=== PATIENT | female | born 1990 | race Caucasian/White ===

== ENCOUNTER → 2016-07-01 | Outpatient (CLI) | payer OTHER ==
[~2016-07-01] MED LIST: CEPH500C PO; DEPLIN PO; FLUO40CA8 PO; HYDR-5688 PO; ONDA4TAB10 SL
== END | disposition home or self-care (01) ==
LOC: C.LABPVFM 10:28
PROVIDERS: ATTEND Nurse Practitioner
DX: F32.9 Major depressive disorder, single episode, unspecified (principal)

== ENCOUNTER → 2016-09-29 | Outpatient (CLI) | payer OTHER ==
[2016-09-29 18:04] LABS: BLOOD UREA NITROGEN 20 mg/dl (7-18); BUN/CREATININE RATIO 25.5 (10-20); CALCIUM 8.7 mg/dl (8.5-10.1); CARBON DIOXIDE 28 mmol/L (21-32); CHLORIDE 106 mmol/L (98-107); CREATININE 0.77 mg/dl (0.60-1.20); GLUCOSE 88 mg/dl (70-99); POTASSIUM 4.4 mmol/L (3.5-5.1); SODIUM 139 mmol/L (136-145)
== END | disposition home or self-care (01) ==
LOC: C.LABPVFM 16:04
PROVIDERS: ATTEND Nurse Practitioner
DX: F32.9 Major depressive disorder, single episode, unspecified (principal); E66.9 Obesity, unspecified

== ENCOUNTER 2016-10-12 10:16 | Emergency (ER) | payer OTHER ==
[~2016-10-12] VITALS: Ht 162.6 cm; Wt 101.2 kg
[~2016-10-12 10:16] MED LIST changes: -CEPH500C PO; -HYDR-5688 PO; -ONDA4TAB10 SL
[2016-10-12 10:29] VITALS: TEMP 36.6; Ht 162.6 cm; Wt 101.2 kg
[2016-10-12] MEDS ORDERED: ONDANSETRON INJ 2 MG/ML 2 ML VIAL IV STA (10:44)
[2016-10-12] MEDS ORDERED: SODIUM CHLORIDE 0.9% 1000ML 1,000 ML IV ONE (10:45)
[2016-10-12] MEDS ORDERED: MoRPHine SULFATE 4 MG/ML 1 ML CARP\\VIAL IV ONE (10:45)
--- NOTE | 2016-10-12 11:27 | DIAGNOSTIC IMAGING REPORT ---
CT SCAN OF THE BRAIN WITHOUT IV CONTRAST CLINICAL HISTORY: Head injury. The patient was kicked by a horse. COMPARISON STUDY: No priors. TECHNIQUE: Unenhanced axial CT scan of the brain is performed from the vertex to the skull base. Automated dose control exposure was utilized. CT DOSE: 638.56 mGycm FINDINGS: Brain parenchyma: The brain parenchyma is normal in appearance. There is no hemorrhage, mass effect, or evidence of acute territorial ischemia by CT criteria. Campbell-white matter is preserved. No extra-axial fluid collection is seen. Ventricles, sulci, cisterns: Normal in configuration. Intracranial vasculature: The visualized intracranial vasculature at the skull base is normal in appearance. Calvarium: No depressed calvarial fracture is seen. Soft tissues: There is a right frontal scalp hematoma/laceration. Sinuses and mastoids: The visualized paranasal sinuses are clear. The mastoid air cells are well pneumatized. Orbits: The bony orbits are grossly intact. IMPRESSION: 1. No acute intracranial abnormality. 2. Right frontal scalp injury. No depressed calvarial fracture is seen. Electronically signed by: Karthik Henry M.D. 10/12/2016 11:25 AM Dictated Date/Time: 10/12/2016 11:22 AM
--- NOTE | 2016-10-12 11:31 | DIAGNOSTIC IMAGING REPORT ---
CT SCAN OF THE CERVICAL SPINE CLINICAL HISTORY: Trauma. The patient was kicked by a horse. COMPARISON STUDY: No priors. TECHNIQUE: CT scan of the cervical spine is performed from the skull base to the upper thoracic spine. Images are reviewed in the axial, sagittal, and coronal planes. IV contrast was not administered for this examination. CT DOSE: 496.82 mGycm FINDINGS: Skeletal structures: The skeletal structures are well mineralized. There is no evidence of fracture or subluxation involving the cervical spine. Vertebral body height and alignment are maintained. There is straightening of the cervical lordosis. Anterior osteophytes are seen at C4-C5. The odontoid process and lateral masses are intact. The atlantoaxial articulation is preserved. The spinous processes appear intact. Intervertebral discs: The disc spaces are well maintained. Central canal: Widely patent. Soft tissues: The prevertebral and paraspinous soft tissues are within normal limits. There are 2 low-attenuation nodules in the right lobe of the thyroid measuring up to 1.3 cm. Calvarium: The visualized calvarium at the skull base appears intact. Brain parenchyma: Partially visualized brain parenchyma the skull base is within normal limits. Sinuses and mastoids: The visualized paranasal sinuses are clear. The mastoid air cells are well pneumatized. Lung apices: Clear as visualized. IMPRESSION: 1. There is no evidence of fracture or subluxation involving the cervical spine. 2. Low-attenuation thyroid nodules measure up to 1.3 cm. Follow-up with a nonemergent thyroid ultrasound is recommended for further assessment. Electronically signed by: Karthik Henry M.D. 10/12/2016 11:28 AM Dictated Date/Time: 10/12/2016 11:25 AM
--- NOTE | 2016-10-12 11:36 | DIAGNOSTIC IMAGING REPORT ---
CT FACIAL BONES-MXILLOFAC WITHOUT CT DOSE: 673.88 mGycm CLINICAL HISTORY: Right facial pain status post trauma. Patient kicked by horse. COMPARISON STUDY: No previous studies for comparison. TECHNIQUE: Helical images were acquired in the transverse plane. The study was reviewed and analyzed on the independent 3-D workstation. The pterygoid plates appear intact. The zygomatic arches appear intact. The globes appear intact. There is no evidence of orbital emphysema. The orbital rangel and floor appear intact. There is an age-indeterminate nondisplaced nasal bone fracture. There is bilateral maxilla sinus mucosal thickening. There is a right frontal scalp laceration. The mandibular condyles appear intact. IMPRESSION: 1. Right frontal scalp laceration. Right periorbital edema. 2. Subtle age-indeterminate nondisplaced nasal bone fracture 3. No additional facial fractures identified Electronically signed by: Jonh Bains M.D. 10/12/2016 11:34 AM Dictated Date/Time: 10/12/2016 11:30 AM
[2016-10-12 11:54] LABS: BASO % 0.1 %; BASO ABS # 0.01 K/uL (0-0.2); COMPLETE YES; EOS % 0.6 %; HEMATOCRIT 40.6 % (37-47); IG% 0.2 %; LYMPH % 7.7 %; LYMPH ABS # 1.22 K/uL (1.2-3.4); MEAN CELL VOLUME 85.1 fL (80-100); MEAN CORPUSCULAR HEMOGLOBIN 28.5 pg (25-34); MEAN CORPUSCULAR HGB CONC 33.5 g/dl (32-36); MEAN PLATELET VOLUME 10.3 fL (7.4-10.4); MONO % 6.6 %; NEUT % 84.8 %; PLATELET COUNT 283 K/uL (130-400); RED BLOOD COUNT 4.77 M/uL (4.2-5.4)
[2016-10-12 11:58] LABS: PROTHROMBIN TIME (PATIENT) 10.7 SECONDS (9.0-12.0)
[2016-10-12] MEDS ORDERED: XYLOCAINE 1%/SOD BICARB 20 ML VIAL INFIL ONE (12:00)
[2016-10-12 12:16] LABS: ALB/GLOB RATIO 0.9 (0.9-2); BUN/CREATININE RATIO 22.4 (10-20); CALCIUM 8.6 mg/dl (8.5-10.1); CREATININE 0.73 mg/dl (0.60-1.20)
[2016-10-12] MEDS ORDERED: HYDR-5688 PO (14:06)
[2016-10-12] MEDS ORDERED: ONDA4TAB10 SL (14:06)
[2016-10-12] MEDS ORDERED: CEPH500C PO (14:06)
[2016-10-12] MEDS ORDERED: CEPHALEXIN MONOHYDRATE 250 MG CAP PO ONE (14:15)
[2016-10-12 14:22] VITALS: BP 137/77; PULSE 87; O2SAT 100
--- NOTE | 2016-10-13 11:50 | EMERGENCY ROOM VISIT NOTE ---
History First contact with patient: 10:37 Chief Complaint: HEAD INJURY (MINOR) Stated Complaint: KICKED IN HEAD BY HORSE History of Present Illness The patient is a 26 year old female who presents to the Emergency Room with complaints of frontal head pain after being kicked by her horse about one hour ago. The patient states that she was struck by the hoof of the horse directly in the forehead. She states that she did not lose consciousness in the accident but didn't suffer laceration to her head. She has a mild headache but no neck pain, chest pain, chest tightness, shortness of breath, numbness, or paresthesias. She is without vision or hearing changes. She is only noticed blood from her laceration and not from elsewhere. She rates her current discomfort a 6/10. She is reportedly up-to-date on her tetanus. She is without additional complaints. Review of Systems More than 10 systems were reviewed and otherwise negative with the exception of history of present illness. Past Medical/Surgical History History of pelvic fracture Family History No pertinent family history Social History Smoking Status: Never Smoker Housing Status: lives with family Current/Historical Medications Scheduled Cephalexin Monohydrate (Keflex), 500 MG PO TID Fluoxetine (Prozac), 40 MG PO DAILY Ondasetron Odt (Zofran Odt), 4 MG SL Q6H [Deplin], 10 MG PO DAILY Scheduled PRN Hydrocodone/Acetaminophen 5MG/325MG (Lawrence 5MG/325MG), 1-2 TABLET PO Q6 PRN for Pain Allergies Coded Allergies: Latex (Verified Allergy, Unknown, ., 08/29/13) Physical Exam Vital Signs Date Time Temp Pulse Resp B/P Pulse Ox O2 Delivery O2 Flow Rate FiO2 10/12/16 14:22 87 15 137/77 100 10/12/16 13:06 80 15 124/73 99 Room Air 10/12/16 11:48 86 16 140/98 99 Room Air 10/12/16 11:30 15 98 10/12/16 10:29 36.6 92 18 148/88 95 Room Air Pain Rating (0-10): 3.0 Physical Exam VITALS: Vitals are noted on the nurse's note and reviewed by myself. Vital signs stable. GENERAL: Well-developed, well-nourished, white female who is in mild to moderate discomfort secondary to her stated complaint. HEAD: There is a gaping 5 cm L-shaped laceration over the right eyebrow. The skull is easily visible from this laceration. No denton sign or raccoon eyes. EARS: External ear normal. External auditory canals clear, tympanic membranes pearly campbell without erythema or effusion bilaterally. No hemotympanum EYES: Pupils equal round and reactive to light and accommodation. Conjunctivae without injection, sclerae without icterus. Extraocular movements intact. NOSE: Patent, turbinates without inflammation or discharge. No epistaxis MOUTH: Mucous membranes moist. Tonsils are not enlarged. Pharynx without erythema, blood, or exudate. Uvula midline. Airway patent. NECK: Supple without nuchal rigidity. No lymphadenopathy. No thyromegaly. Cervical spine is nontender. HEART: Regular rate and rhythm without murmurs gallops or rubs. LUNGS: Clear to auscultation bilaterally without wheezes, rales or rhonchi. No retractions or accessory muscle use. ABDOMEN: Positive normal bowel sounds x 4. Soft, nontender, without masses or organomegaly. No guarding or rebound tenderness. MUSCULOSKELETAL: No muscle atrophy, erythema, or edema noted. Full range of motion without joint tenderness in all extremities. No tenderness to palpation. Normal gait. Strength 5/5 throughout. NEURO: Patient was alert and oriented to person place and time. CN II through XII grossly intact. Deep tendon reflexes 2+ throughout. No focal neurological deficits SKIN: The skin was without rashes, erythema, edema, or bruising. Capillary reflex less than 2 seconds. Medical Decision & Procedures ER Provider Diagnostic Interpretation: CT SCAN OF THE BRAIN WITHOUT IV CONTRAST CLINICAL HISTORY: Head injury. The patient was kicked by a horse. COMPARISON STUDY: No priors. TECHNIQUE: Unenhanced axial CT scan of the brain is performed from the vertex to the skull base. Automated dose control exposure was utilized. CT DOSE: 638.56 mGycm FINDINGS: Brain parenchyma: The brain parenchyma is normal in appearance. There is no hemorrhage, mass effect, or evidence of acute territorial ischemia by CT criteria. Campbell-white matter is preserved. No extra-axial fluid collection is seen. Ventricles, sulci, cisterns: Normal in configuration. Intracranial vasculature: The visualized intracranial vasculature at the skull base is normal in appearance. Calvarium: No depressed calvarial fracture is seen. Soft tissues: There is a right frontal scalp hematoma/laceration. Sinuses and mastoids: The visualized paranasal sinuses are clear. The mastoid air cells are well pneumatized. Orbits: The bony orbits are grossly intact. IMPRESSION: 1. No acute intracranial abnormality. 2. Right frontal scalp injury. No depressed calvarial fracture is seen. CT FACIAL BONES-MXILLOFAC WITHOUT CT DOSE: 673.88 mGycm CLINICAL HISTORY: Right facial pain status post trauma. Patient kicked by horse. COMPARISON STUDY: No previous studies for comparison. TECHNIQUE: Helical images were acquired in the transverse plane. The study was reviewed and analyzed on the independent 3-D workstation. The pterygoid plates appear intact. The zygomatic arches appear intact. The globes appear intact. There is no evidence of orbital emphysema. The orbital rangel and floor appear intact. There is an age-indeterminate nondisplaced nasal bone fracture. There is bilateral maxilla sinus mucosal thickening. There is a right frontal scalp laceration. The mandibular condyles appear intact. IMPRESSION: 1. Right frontal scalp laceration. Right periorbital edema. 2. Subtle age-indeterminate nondisplaced nasal bone fracture 3. No additional facial fractures identified CT SCAN OF THE CERVICAL SPINE CLINICAL HISTORY: Trauma. The patient was kicked by a horse. COMPARISON STUDY: No priors. TECHNIQUE: CT scan of the cervical spine is performed from the skull base to the upper thoracic spine. Images are reviewed in the axial, sagittal, and coronal planes. IV contrast was not administered for this examination. CT DOSE: 496.82 mGycm FINDINGS: Skeletal structures: The skeletal structures are well mineralized. There is no evidence of fracture or subluxation involving the cervical spine. Vertebral body height and alignment are maintained. There is straightening of the cervical lordosis. Anterior osteophytes are seen at C4-C5. The odontoid process and lateral masses are intact. The atlantoaxial articulation is preserved. The spinous processes appear intact. Intervertebral discs: The disc spaces are well maintained. Central canal: Widely patent. Soft tissues: The prevertebral and paraspinous soft tissues are within normal limits. There are 2 low-attenuation nodules in the right lobe of the thyroid measuring up to 1.3 cm. Calvarium: The visualized calvarium at the skull base appears intact. Brain parenchyma: Partially visualized brain parenchyma the skull base is within normal limits. Sinuses and mastoids: The visualized paranasal sinuses are clear. The mastoid air cells are well pneumatized. Lung apices: Clear as visualized. IMPRESSION: 1. There is no evidence of fracture or subluxation involving the cervical spine. 2. Low-attenuation thyroid nodules measure up to 1.3 cm. Follow-up with a nonemergent thyroid ultrasound is recommended for further assessment. Laboratory Results 10/12/16 11:30 Red Blood Count 4.77, Mean Corpuscular Volume 85.1, Mean Corpuscular Hemoglobin 28.5, Mean Corpuscular Hemoglobin Concent 33.5, Mean Platelet Volume 10.3, Neutrophils (%) (Auto) 84.8, Lymphocytes (%) (Auto) 7.7, Monocytes (%) (Auto) 6.6, Eosinophils (%) (Auto) 0.6, Basophils (%) (Auto) 0.1, Neutrophils # (Auto) 13.40, Lymphocytes # (Auto) 1.22, Monocytes # (Auto) 1.04, Eosinophils # (Auto) 0.10, Basophils # (Auto) 0.01 10/12/16 11:30 Test 10/12/16 11:30 White Blood Count 15.80 K/uL (4.8-10.8) Red Blood Count 4.77 M/uL (4.2-5.4) Hemoglobin 13.6 g/dL (12.0-16.0) Hematocrit 40.6 % (37-47) Mean Corpuscular Volume 85.1 fL (80-100) Mean Corpuscular Hemoglobin 28.5 pg (25-34) Mean Corpuscular Hemoglobin Concent 33.5 g/dl (32-36) Platelet Count 283 K/uL (130-400) Mean Platelet Volume 10.3 fL (7.4-10.4) Neutrophils (%) (Auto) 84.8 % Lymphocytes (%) (Auto) 7.7 % Monocytes (%) (Auto) 6.6 % Eosinophils (%) (Auto) 0.6 % Basophils (%) (Auto) 0.1 % Neutrophils # (Auto) 13.40 K/uL (1.4-6.5) Lymphocytes # (Auto) 1.22 K/uL (1.2-3.4) Monocytes # (Auto) 1.04 K/uL (0.11-0.59) Eosinophils # (Auto) 0.10 K/uL (0-0.5) Basophils # (Auto) 0.01 K/uL (0-0.2) RDW Standard Deviation 40.2 fL (36.4-46.3) RDW Coefficient of Variation 12.9 % (11.5-14.5) Immature Granulocyte % (Auto) 0.2 % Immature Granulocyte # (Auto) 0.03 K/uL (0.00-0.02) Prothrombin Time 10.7 SECONDS (9.0-12.0) Prothromb Time International Ratio 1.0 (0.9-1.1) Activated Partial Thromboplast Time 26.5 SECONDS (21.0-31.0) Partial Thromboplastin Ratio 1.0 Anion Gap 8.0 mmol/L (3-11) Est Creatinine Clear Calc Drug Dose 136.4 ml/min Estimated GFR () 132.7 Estimated GFR (Non- 114.5 BUN/Creatinine Ratio 22.4 (10-20) Calcium Level 8.6 mg/dl (8.5-10.1) Total Bilirubin 0.5 mg/dl (0.2-1) Aspartate Amino Transf (AST/SGOT) 14 U/L (15-37) Alanine Aminotransferase (ALT/SGPT) 21 U/L (12-78) Alkaline Phosphatase 79 U/L (45-117) Total Protein 7.4 gm/dl (6.4-8.2) Albumin 3.6 gm/dl (3.4-5.0) Globulin 3.8 gm/dl (2.5-4.0) Albumin/Globulin Ratio 0.9 (0.9-2) Chemistry Specimen Hemolysis Medications Administered Medications (Trade) Dose Ordered Sig/Christiana Route Start Time Stop Time Status Last Admin Dose Admin Sodium Chloride (Nss 1000ml) 1,000 ml @ 999 mls/hr Q1H1M ONCE IV 10/12/16 10:45 10/12/16 11:45 DC 10/12/16 11:43 999 MLS/HR Morphine Sulfate (MoRPHine SULFATE INJ) 4 mg NOW ONCE IV 10/12/16 10:45 10/12/16 10:46 DC 10/12/16 11:44 4 MG Ondansetron HCl (Zofran Inj) 4 mg NOW STAT IV 10/12/16 10:44 4/19/17 10:46 DC 10/12/16 11:44 4 MG Cephalexin Monohydrate (Keflex Cap) 500 mg NOW ONCE PO 10/12/16 14:15 10/12/16 14:16 DC 10/12/16 14:17 500 MG Procedure Laceration repair. Patient elects to have their laceration repaired. Verbal consent was obtained to perform the procedure. There is an abundance of materials available for the procedure. Patient is allergic to latex, and latex products were not used. Using sterile technique the wound was cleaned with Betadine. The area was sterilely draped. 7 ml of 1% buffered lidocaine was used to anesthetize the right eyebrow laceration. Once the patient was anesthetized, the wound was copiously irrigated under pressure with sterile saline. The wound was explored and there were no deep structures injured such as tendons, bone, or significant blood vessels. The galea was repaired utilizing a running 6-0 Vicryl suture. The more superficial structures were additionally approximated with another running 6-0 Vicryl suture. The most external layer of the laceration was repaired using 5 simple interrupted 6-0 nylon sutures with the wound edges being well approximated. Hemostasis was achieved. The area was cleaned with sterile saline and dressed with bacitracin ointment and bandage. Patient tolerated the procedure well without complications. Blood loss was negligible. ED Course Physical exam and history were performed. Nursing notes and EMR were reviewed. Patient appears to have been kicked by a horse in the front of her head. She does have obvious trauma with laceration. IV access was established and labs were obtained. The patient was hydrated medicated as above. She was quickly sent to CT scan for imaging. The patient's blood work does show a slightly elevated white blood cell count, which is felt to be from a stress reaction. She does not have other significant findings and blood work. CT scans of the head, neck, and face do not show acute fracture or bleed. There is an indeterminate nasal fracture, however the patient is not tender in this area and there is no epistaxis. The patient's wounds were repaired as above, and she tolerated this well. Overall the patient was monitored for greater than 3-1/2 hours here in the ER without any deterioration of her condition. She was much more comfortable after pain medication. She does appear stable for discharge home and will be given a course of Vicodin to assist with pain control. She likely has a concussion, and this was discussed at length with the family. The patient will need close follow-up with her PCP for further care and management. She was otherwise invited back to the ER with any new, worsening, or concerning symptoms. The chart was completed utilizing [employer]ar Speech Voice Recognition Software. Grammatical errors, random word insertions, pronoun errors, and incomplete sentences are an occasional consequence of this system due to software limitations, ambient noise, and hardware issues. Any formal questions or concerns about the content, text, or information contained within the body of this dictation should be directly addressed to the provider for clarification. . Medical Decision Differential diagnosis: Etiologies such as concussion, contusion, fracture, subdural hematoma, epidural hematoma, intraparenchymal hemorrhage, as well as other traumatic pathologies were entertained. Impression Primary Impression: Struck by horse Additional Impressions: Laceration of scalp Closed head injury with concussion Departure Information Dispostion Home / Self-Care Condition GOOD Prescriptions Ondasetron Odt (ZOFRAN ODT) 4 Mg Tab 4 MG SL Q6H for Nausea, #12 TAB Prov: Craig Greenwood PA-C 10/12/16 Hydrocodone/Acetaminophen 5MG/325MG (Lawrence 5MG/325MG) Tab 1-2 TABLET PO Q6 Y for Pain, #15 TAB For Initial Treatment Prov: Craig Greenwood PA-C 10/12/16 Cephalexin Monohydrate (Keflex) 500 Mg Cap 500 MG PO TID for 7 Days, #21 CAP Prov: Craig Greenwood PA-C 10/12/16 Forms HOME CARE DOCUMENTATION FORM, IMPORTANT VISIT INFORMATION Patient Instructions My [facility] Additional Instructions You were seen and evaluated today on an emergency basis only. This is not a substitute for, or an effort to provide, complete comprehensive medical care. It is not possible to recognize and treat all injuries or illnesses in a single emergency department visit. For this reason it is recommended that you followup with your primary care physician in the next 1-2 days for recheck of your condition. For baseline pain relief you may alternate ibuprofen and acetaminophen every 4 hours for pain control. Take 600 mg ibuprofen (Advil) and then 4 hours later take 1000 mg acetaminophen (Tylenol). Do not take more than 3000 mg acetaminophen in a single day. Lawrence (hydrocodone/acetaminophen) 5/325 mg ONE or TWO every 6 hours as needed for worsening breakthrough pain. Do not drink or drive on [place]. This medication will likely make you tired. Do not take Lawrence and Tylenol at the same time as both contain acetaminophen. Lawrence may cause constipation. You may wish to take an [id number] stool softener like Colace if this occurs. Cephalexin(Keflex) 500mg: Take one pill 3 times daily for 7 days to prevent infection. All antibiotics can cause diarrhea. If this occurs and you feel worse or it does not resolve in 1-2 days follow up with your doctor or return to the Emergency Department as this could be signs of serious underlying problems. Any medication can cause an allergic reaction, stop the pills immediately and return to the ER for rash, hives, breathing difficulties, or swelling. Zofran 1 tablet every 6 hrs as needed for nausea. You are welcome to return to the emergency department anytime with new, worsening, or concerning symptoms. Problem Qualifiers
== END 2016-10-12 14:24 | disposition home or self-care (01) ==
LOC: C.EDB 10:17 → C.EDC 14:24
DX: S01.111A Laceration without foreign body of right eyelid and periocular area, initial encounter (principal); S06.0X0A Concussion without loss of consciousness, initial encounter; Z79.899 Other long term (current) drug therapy; Z87.828 Personal history of other (healed) physical injury and trauma; W55.12XA Struck by horse, initial encounter

== ENCOUNTER → 2016-11-16 | Outpatient (CLI) | payer OTHER ==
[~2016-11-16] MED LIST changes: +HYDR-5688 PO; +ONDA4TAB10 SL
--- NOTE | 2016-11-16 09:09 | DIAGNOSTIC IMAGING REPORT ---
ULTRASOUND OF THE THYROID GLAND CLINICAL HISTORY: Thyroid nodule. COMPARISON STUDY: CT scan of the cervical spine dated 10/12/2016. TECHNIQUE: Real-time, grayscale, and color flow sonography of the thyroid gland is performed utilizing a high-frequency linear transducer. Images are reviewed in the transverse and longitudinal planes. FINDINGS: Right lobe: The right lobe of the thyroid gland is normal in size and homogeneous in echotexture, measuring 4.8 x 2.1 x 2.1 cm. There is a colloid cyst in the anterior midpole measuring 1.6 x 1.0 x 1.3 cm, and a colloid cyst in the lower pole measures 1.2 x 0.7 x 0.8 cm. Left lobe: The left lobe of the thyroid gland is normal in size and homogeneous in echotexture, measuring 5.3 x 1.2 x 1.9 cm. Isthmus: Imaged portions of the thyroid isthmus measure up to 0.3 cm in AP thickness. A midline defect is likely related to previous tracheostomy. IMPRESSION: 1. 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 2. No concerning thyroid lesion is seen. 3. A defect in the midline isthmus is likely related previous tracheostomy. Electronically signed by: Karthik Henry M.D. 11/16/2016 9:08 AM Dictated Date/Time: 11/16/2016 9:05 AM
== END | disposition home or self-care (01) ==
LOC: C.ULTR 08:44
PROVIDERS: ATTEND Nurse Practitioner Family
DX: E04.2 Nontoxic multinodular goiter (principal)